=== PATIENT | female | born 1950 | race Caucasian/White ===

== ENCOUNTER 2021-08-22 17:48 | Inpatient (IN) ==
[2021-08-22 19:09] LABS: Basophils # 0.1 K/mcL (0.0-0.2); Basophils % 0.6 %; Eosinophils # 0.1 K/mcL (0.0-0.6); Eosinophils % 1.1 %; Hematocrit 41.4 % (35.3-44.9); Hemoglobin 13.6 g/dL (11.5-15.4); Immature Granulocytes % 0.2 % (0-4); Lymphocytes # 1.4 K/mcL (0.6-4.6); Lymphocytes % 15.5 %; Mean Corpuscular HGB Conc 32.9 g/dL (31.6-35.5); Mean Corpuscular Hemoglobin 31.3 pg (28.0-33.3); Mean Corpuscular Volume 95.2 fL (83.0-100.0); Mean Platelet Volume 9.3 fL (9.4-12.4); Monocytes # 0.5 K/mcL (0.0-1.3); Monocytes % 5.8 %; Platelet Count 265 K/mcL (140-400); Red Blood Count 4.35 M/mcL (3.82-4.97); Red Cell Distribution Width 13.8 % (11.5-14.5); Segmented Neutrophils % 76.8 %; White Blood Count 9.1 K/mcL (4.3-11.1)
[2021-08-22 19:27] LABS: BUN/Creatinine Ratio 27 (6-26); Blood Urea Nitrogen 24 mg/dL (8-23); Calcium 9.4 mg/dL (8.6-10.3); Carbon Dioxide 27 mEq/L (23-29); Chloride 107 mEq/L (98-107); Glucose 117 mg/dL (70-105); Osmolality,Calculated 299 (280-300); Potassium 3.8 mEq/L (3.5-5.1); Sodium 142 mEq/L (136-145); Troponin I 0.03 ng/mL (< 0.04); eGFR For African Americans > 60 (> 60); eGFR For Non-African Americans > 60 (> 60)
[2021-08-22] MEDS ORDERED: Furosemide 40 MG/4 ML VIAL IVP ONE (19:58)
[2021-08-22] MEDS ORDERED: Nitroglycerin 0.4 MG TAB.SUBL SL ONE (20:05)
[2021-08-22] MEDS ORDERED: Naloxone 0.4 MG/ML INJ IVP PRN (20:21)
[2021-08-22] MEDS ORDERED: Acetaminophen 325 MG TABLET PO PRN (20:21)
[2021-08-22] MEDS ORDERED: Ondansetron 4 MG/2 ML VIAL IVP PRN (20:21)
[2021-08-22] MEDS ORDERED: Ipratropium/Albuterol Neb 3 ML IH PRN (20:24)
[2021-08-22] MEDS ORDERED: Perflutren Lipid Microsphere 1.3 ML in 0.9 % Sodium Chloride 8.7 ML IVP PRN (20:24)
[2021-08-22 21:12] LABS: Bilirubin,Urine Negative (Negative); Blood,Urine Negative (Negative); Clarity,Urine Clear (Clear); Color,Urine Colorless (Yellow); Glucose,Urine (UA) Normal (Normal); Ketones,Urine Negative (Negative); Leukocyte Esterase,Urine Negative (Negative); Nitrite,Urine Negative (Negative); Protein,Urine Negative (Neg-Trace); Urobilinogen,Urine Normal (Normal)
[2021-08-22 21:49] LABS: Influenza A PCR Negative (Negative); Influenza B PCR Negative (Negative); Resp. Syncytial Virus PCR Negative (Negative)
[2021-08-22 21:52] LABS: SARS-CoV-2 by PCR (In House) Negative (Negative)
[2021-08-23 00:39] LABS: Basophils # 0.1 K/mcL (0.0-0.2); Basophils % 0.6 %; Eosinophils # 0.1 K/mcL (0.0-0.6); Eosinophils % 1.3 %; Hematocrit 39.8 % (35.3-44.9); Hemoglobin 13.2 g/dL (11.5-15.4); Immature Granulocytes % 0.4 % (0-4); Lymphocytes # 1.9 K/mcL (0.6-4.6); Lymphocytes % 17.7 %; Mean Corpuscular HGB Conc 33.2 g/dL (31.6-35.5); Mean Corpuscular Hemoglobin 31.1 pg (28.0-33.3); Mean Corpuscular Volume 93.9 fL (83.0-100.0); Mean Platelet Volume 9.4 fL (9.4-12.4); Monocytes # 0.7 K/mcL (0.0-1.3); Monocytes % 6.9 %; Neutrophils # 7.9 K/mcL (1.6-8.9); Platelet Count 262 K/mcL (140-400); Red Blood Count 4.24 M/mcL (3.82-4.97); Red Cell Distribution Width 13.9 % (11.5-14.5); Segmented Neutrophils % 73.1 %; White Blood Count 10.8 K/mcL (4.3-11.1)
[2021-08-23 00:46] LABS: INR 1.2; Prothrombin Time 12.9 Seconds (9.4-12.1)
[2021-08-23 00:57] LABS: Albumin 4.1 g/dL (3.5-5.7); Albumin/Globulin Ratio 1.6 (1.1-2.2); Bilirubin,Direct 0.2 mg/dL (0.0-0.2); Bilirubin,Indirect 0.7 mg/dL (0.0-1.0); Bilirubin,Total 0.9 mg/dL (0.3-1.0); Globulin 2.6 g/dL (2.4-3.5); Total Protein 6.7 g/dL (6.4-8.9)
[2021-08-23] MEDS ORDERED: Isovue-370 500 ML BOTTLE IVP ONE (00:59)
[2021-08-23 01:00] LABS: BUN/Creatinine Ratio 24 (6-26); Blood Urea Nitrogen 23 mg/dL (8-23); Calcium 9.3 mg/dL (8.6-10.3); Carbon Dioxide 25 mEq/L (23-29); Chloride 108 mEq/L (98-107); Chol/HDL Ratio 2.2 (0-4.9); Cholesterol 108 mg/dL (< 200); Glucose 119 mg/dL (70-105); HDL Cholesterol 49 mg/dL (40-59); LDL Cholesterol,Calculated 27 mg/dL (< 100); Osmolality,Calculated 297 (280-300); Phosphorous 3.3 mg/dL (2.7-4.5); Potassium 3.8 mEq/L (3.5-5.1); Sodium 141 mEq/L (136-145); Triglycerides 160 mg/dL (< 150); eGFR For African Americans > 60 (> 60); eGFR For Non-African Americans 57 (> 60)
[2021-08-23 01:01] LABS: Troponin I 0.04 ng/mL (< 0.04)
[2021-08-23 01:05] LABS: Estimated Average Glucose 126 mg/dl
[2021-08-23] MEDS ORDERED: Ipratropium/Albuterol Neb 3 ML IH PRN (07:32)
[2021-08-23] MEDS: Furosemide 40 MG/4 ML VIAL IVP SCH ×2 (07:42→20:23)
[2021-08-23] MEDS ORDERED: *HR* Enoxaparin 40 MG/0.4 ML SYRINGE SQ SCH (09:00)
[2021-08-23] MEDS ORDERED: Levothyroxine Sodium 100 MCG VIAL IVP ONE (09:00)
[2021-08-23] MEDS ORDERED: Budesonide/Formoterol 80/4.5 1 PUFF INH IH SCH (10:00)
[2021-08-23] MEDS: Aspirin Enteric Coated 81 MG Tablet PO SCH (14:17)
[2021-08-23] MEDS ORDERED: *HR* Heparin 5,000 UNIT/ML VIAL IVP ONE (17:08)
[2021-08-23] MEDS ORDERED: *HR* Heparin 5,000 UNIT/ML VIAL IVP PRN ×2 (17:08)
[2021-08-23 17:54] LABS: Hematocrit 39.2 % (35.3-44.9); Hemoglobin 13.1 g/dL (11.5-15.4); Mean Corpuscular HGB Conc 33.4 g/dL (31.6-35.5); Mean Corpuscular Hemoglobin 30.6 pg (28.0-33.3); Mean Corpuscular Volume 91.6 fL (83.0-100.0); Mean Platelet Volume 9.4 fL (9.4-12.4); Platelet Count 246 K/mcL (140-400); Red Blood Count 4.28 M/mcL (3.82-4.97); Red Cell Distribution Width 13.9 % (11.5-14.5); White Blood Count 10.7 K/mcL (4.3-11.1)
[2021-08-23 18:02] LABS: Heparin anti-factor XA UFH 0.12 IU/mL (0.30-0.70)
[2021-08-23 18:03] LABS: INR 1.1; Prothrombin Time 12.5 Seconds (9.4-12.1)
[2021-08-23] MEDS: Heparin 25,000UNIT/250ML 1/2NS 25,000 UNIT/250 ML IV.SOLN IVC SCH (18:10)
[2021-08-23 18:33] LABS: Adenovirus F 40/41 PCR Not detected (Not detect); Astrovirus PCR Not detected (Not detect); C.difficile Toxin A/B Gene PCR Not detected (Not detect); Campylobacter by PCR Not detected (Not detect); Cryptosporidium by PCR Not detected (Not detect); Cyclospora cayetanensis PCR Not detected (Not detect); E. coli O157 by PCR Not detected (Not detect); Entamoeba histolytica PCR Not detected (Not detect); Enteroaggregative E.coli(EAEC) Not detected (Not detect); Enteropathogenic E.coli(EPEC) Not detected (Not detect); Enterotoxigenic E.coli (ETEC) Not detected (Not detect); Giardia lamblia PCR Not detected (Not detect); Norovirus GI/GII PCR Not detected (Not detect); Plesiomonas shigelloides PCR Not detected (Not detect); Rotavirus A PCR Not detected (Not detect); Salmonella PCR Not detected (Not detect); Sapovirus PCR Not detected (Not detect); Shig/EnteroinvasiveE coli EIEC Not detected (Not detect); Shigalike tox-prod E coli STEC Not detected (Not detect); Vibrio PCR Not detected (Not detect); Vibrio cholerae PCR Not detected (Not detect); Yersinia enterocolitica PCR Not detected (Not detect)
[2021-08-24 01:00] LABS: Basophils # 0.1 K/mcL (0.0-0.2); Basophils % 0.6 %; Eosinophils # 0.3 K/mcL (0.0-0.6); Eosinophils % 3.5 %; Hematocrit 38.4 % (35.3-44.9); Hemoglobin 12.8 g/dL (11.5-15.4); Immature Granulocytes % 0.2 % (0-4); Lymphocytes # 2.3 K/mcL (0.6-4.6); Lymphocytes % 26.1 %; Mean Corpuscular HGB Conc 33.3 g/dL (31.6-35.5); Mean Corpuscular Hemoglobin 31.2 pg (28.0-33.3); Mean Corpuscular Volume 93.7 fL (83.0-100.0); Mean Platelet Volume 9.6 fL (9.4-12.4); Monocytes # 0.6 K/mcL (0.0-1.3); Monocytes % 6.7 %; Neutrophils # 5.5 K/mcL (1.6-8.9); Platelet Count 228 K/mcL (140-400); Red Cell Distribution Width 13.8 % (11.5-14.5); Segmented Neutrophils % 62.9 %; White Blood Count 8.8 K/mcL (4.3-11.1)
[2021-08-24 01:23] LABS: BUN/Creatinine Ratio 21 (6-26); Blood Urea Nitrogen 21 mg/dL (8-23); Carbon Dioxide 28 mEq/L (23-29); Chloride 103 mEq/L (98-107); Glucose 158 mg/dL (70-105); Osmolality,Calculated 296 (280-300); Potassium 3.6 mEq/L (3.5-5.1); Sodium 140 mEq/L (136-145); eGFR For African Americans > 60 (> 60); eGFR For Non-African Americans 55 (> 60)
[2021-08-24] MEDS: Levothyroxine 25 MCG TABLET PO SCH (05:16)
[2021-08-24] MEDS: Aspirin Enteric Coated 81 MG Tablet PO SCH (10:18)
[2021-08-24] MEDS: Furosemide 40 MG/4 ML VIAL IVP SCH ×2 (10:18→21:36)
[2021-08-24] MEDS: Metoprolol XL (24 HR) Succ 25 MG TAB.ER.24H PO SCH (10:19)
[2021-08-24] MEDS: Heparin 25,000UNIT/250ML 1/2NS 25,000 UNIT/250 ML IV.SOLN IVC SCH (21:22)
[2021-08-25 02:11] LABS: Hemoglobin 12.1 g/dL (11.5-15.4); Mean Corpuscular HGB Conc 33.6 g/dL (31.6-35.5); Mean Corpuscular Hemoglobin 31.3 pg (28.0-33.3); Mean Platelet Volume 9.8 fL (9.4-12.4); Platelet Count 213 K/mcL (140-400); Red Blood Count 3.87 M/mcL (3.82-4.97); Red Cell Distribution Width 13.7 % (11.5-14.5)
[2021-08-25 02:34] LABS: Alanine Aminotransferase 51 Units/L (7-52); Aspartate Amino Transferase 31 Units/L (13-39); BUN/Creatinine Ratio 23 (6-26); Blood Urea Nitrogen 21 mg/dL (8-23); Calcium 9.1 mg/dL (8.6-10.3); Carbon Dioxide 28 mEq/L (23-29); Chloride 103 mEq/L (98-107); Glucose 107 mg/dL (70-105); Magnesium 1.7 mg/dL (1.6-2.6); Osmolality,Calculated 297 (280-300); Sodium 142 mEq/L (136-145); eGFR For African Americans > 60 (> 60); eGFR For Non-African Americans 59 (> 60)
[2021-08-25] MEDS: Levothyroxine 25 MCG TABLET PO SCH (06:54)
[2021-08-25] MEDS: Aspirin Enteric Coated 81 MG Tablet PO SCH (08:14)
[2021-08-25] MEDS: Metoprolol XL (24 HR) Succ 25 MG TAB.ER.24H PO SCH (08:15)
[2021-08-25] MEDS: Furosemide 40 MG/4 ML VIAL IVP SCH (08:16)
[2021-08-25] MEDS ORDERED: Metoprolol XL (24 HR) Succ 25 MG TAB.ER.24H PO SCH (09:00)
[2021-08-25] MEDS ORDERED: Isovue-370 500 ML BOTTLE IVP ONE (09:02)
[2021-08-25] MEDS ORDERED: *HR* Metoprolol 5 MG/5 ML VIAL IVP PRN (10:24)
[2021-08-25] MEDS ORDERED: Nitroglycerin 0.4 MG TAB.SUBL SL PRN (10:24)
[2021-08-25] MEDS: Spironolactone 12.5 MG TABLET PO SCH (12:17)
[2021-08-26 02:52] VITALS: TEMP 97.7
[2021-08-26 05:31] LABS: Hematocrit 35.9 % (35.3-44.9); Hemoglobin 12.1 g/dL (11.5-15.4); Mean Corpuscular HGB Conc 33.7 g/dL (31.6-35.5); Mean Corpuscular Hemoglobin 31.8 pg (28.0-33.3); Mean Corpuscular Volume 94.2 fL (83.0-100.0); Mean Platelet Volume 9.8 fL (9.4-12.4); Platelet Count 207 K/mcL (140-400); Red Blood Count 3.81 M/mcL (3.82-4.97); Red Cell Distribution Width 13.9 % (11.5-14.5); White Blood Count 7.2 K/mcL (4.3-11.1)
[2021-08-26 05:51] LABS: BUN/Creatinine Ratio 21 (6-26); Blood Urea Nitrogen 20 mg/dL (8-23); Calcium 9.2 mg/dL (8.6-10.3); Carbon Dioxide 28 mEq/L (23-29); Chloride 103 mEq/L (98-107); Glucose 86 mg/dL (70-105); Osmolality,Calculated 288 (280-300); Potassium 3.9 mEq/L (3.5-5.1); Sodium 138 mEq/L (136-145); eGFR For African Americans > 60 (> 60); eGFR For Non-African Americans 59 (> 60)
[2021-08-26] MEDS: Levothyroxine 25 MCG TABLET PO SCH (06:15)
[2021-08-26 07:03] VITALS: BP 118/75; PULSE 90
[2021-08-26] MEDS: Spironolactone 12.5 MG TABLET PO SCH (08:11)
[2021-08-26] MEDS: Aspirin Enteric Coated 81 MG Tablet PO SCH (08:11)
[2021-08-26] MEDS ORDERED: Furosemide 20 MG TABLET PO SCH (09:00)
[2021-08-26] MEDS ORDERED: Metoprolol XL (24 HR) Succ 25 MG TAB.ER.24H PO SCH (09:00)
[2021-08-26 09:57] VITALS: O2SAT 98
== END 2021-08-26 14:35 | disposition home health service (06) | DRG 280 ==
LOC: 2ANU 17:48 → EMEROOARM 17:48 → SUATTDRO 21:00 → UNDODISOB 21:55 → 2ANU 23:26
PROVIDERS: ADMIT Student in an Organized Health Care Education/Training Program; ATTEND Pharmacist